=== PATIENT | male | born 1975 | race Two or more races ===

== ENCOUNTER 2021-04-12 10:58 | Emergency (ER) | payer OTHER ==
[~2021-04-12] VITALS: Ht 180.3 cm; Wt 78.6 kg
[2021-04-12 11:15] VITALS: BP 137/60
[2021-04-12] MEDS ORDERED: IBUPROFEN 400 MG TABLET. PO ONE (11:45)
[2021-04-12] MEDS ORDERED: BACITRACIN TOPICAL OINT PACKET. TP ONE (11:45)
[2021-04-12] MEDS ORDERED: DIPH,PERTUSS(ACELL),TET VAC/PF 0.5 ML SYRINGE. VAX IM ONE (11:45)
--- NOTE | 2021-04-12 11:59 | PHYS DOC ---
Past Medical History Past Surgical History: No Surgical History General Adult EDM: Chief Complaint: LACERATION/AVULSION HPI: HPI: Patient is a 46 year old male who presents with laceration to the right rose that occurred last night at 2200. Patient states that he works for [employer], and he was walking between the truck and the trailer when he fell from standing onto his right knee. He states he was scraped on the rose on his way down by part of the metal trailer, and now has some abrasions to the knee as well. He cleaned the wound with soap and water and placed a bandaid on it, then continued to work. He rates his right knee pain 8/10 at rest, but it worsens with weight bearing. He is able to ambulate with pain. He also states he feels some soreness on his right side, but it is a mild discomfort. Patient denies LOC, head trauma, or other joint pain. Patient has no other complaints at this time. Review of Systems: Review of Systems: Constitutional: Denies fever or chills. Respiratory: Denies cough or shortness of breath. Cardiovascular: Denies chest pain or edema. Musculoskeletal: See HPI Integument: See HPI Neurologic: Denies headache, focal weakness or sensory changes. Heart Score: C/O Chest Pain: No Current Medications: Current Medications Medications (Trade) Dose Ordered Sig/Rigoberto Start Time Stop Time Status Last Admin Dose Admin Bacitracin (Bacitracin Zinc Oint Pkt) 1 pkt 1X ONCE 04/12/21 11:45 04/12/21 11:46 Diphtheria/ Tetanus/Acell Pertussis (ADACEL TDap SYRINGE) 0.5 ml ONCE ONCE 04/12/21 11:45 04/12/21 11:46 Ibuprofen (Motrin) 800 mg 1X ONCE 04/12/21 11:45 04/12/21 11:46 Allergies: Allergies: Allergies Coded Allergies Type Severity Reaction Last Updated Verified No Known Drug Allergies 04/12/21 No Physical Exam: PE: Constitutional: Well developed, well nourished, no acute distress, non-toxic appearance. Eyes: PERRLA, EOMI, conjunctiva normal, no discharge. Neck: Normal range of motion, no tenderness, supple, no stridor. Cardiovascular: Heart rate regular rhythm, no murmur. Lungs & Thorax: Bilateral breath sounds clear to auscultation. Skin: Superficial abrasions noted to the right knee. Right rose just distal to the knee has a 1 cm laceration without foreign body, active bleeding or discharge. Skin otherwise warm, dry, no erythema, no rash. Back: No step-offs, no bony tenderness, no paraspinal spasm, no CVA tenderness. Extremities: Right knee tender to palpation distal to the patella and over the proximal tibia, right knee flexion and extension limited secondary to pain. Other extremities ROM intact without tenderness, cyanosis, clubbing, edema. Neurovascular intact in extremities x4. Neurologic: Alert and oriented X 3, normal motor function, normal sensory function, no focal deficits noted. Current Patient Data: Vital Signs: Vital Signs Date Time Temp Pulse Resp B/P (MAP) Pulse Ox O2 Delivery O2 Flow Rate FiO2 04/12/21 11:15 97.9 80 16 137/60 (85) 98 Room Air 97.9 Radiology/Procedures: Radiology/Procedures: PROCEDURE: KNEE RIGHT 3V XR KNEE 3 VIEWS_RT Clinical indications: Reason: fall from standing / Spl. Instructions: / History: Findings: No acute fracture or dislocation or osteolytic process is evident. The patella is normally aligned. No right knee joint effusion is seen. IMPRESSION: No acute osseous abnormality is evident. Electronically signed by: Pal Perez MD (04/12/2021 12:04 PM) [id number] Course & Med Decision Making: Course & Med Decision Making Pertinent Labs and Imaging studies reviewed. (See chart for details) Due to the fact that the patient's laceration was sustained over 12 hours ago, outside, and on metal, I will not suture the laceration. It will be cleansed and irrigated with normal saline, bacitracin will be applied and will have a gauze covering. Patient states his tetanus shot is not up-to-date, so that will be updated in the department today as well. R knee xrays will be ordered, as the patient had most of his body weight fall to his knee. No fractures are seen on right knee x-rays. Patient states his pain is somewhat improved with ibuprofen. He is instructed to either continue using ibuprofen at home, or he can switch to naproxen. He should be sure to observe the wound at home for any signs of infection. Patient is comfortable with discharge plan. Dragon Disclaimer: Dragon Disclaimer: This electronic medical record was generated, in whole or in part, using a voice recognition dictation system. Departure Departure Impression: Primary Impression: Laceration without foreign body Additional Impression: Contusion of right knee, initial encounter Disposition: HOME / SELF CARE / HOMELESS Condition: STABLE Patient Instructions: Laceration Care, Adult, [id number] Additional Instructions: Keep the wound clean and dry, especially while working. You may continue to take [id number] ibuprofen or naproxen, as discussed. You do not need antibiotic prophylaxis at this time, but please return to the ER if you notice purulent discharge, increased warmth/redness around the wound, or if you develop a fever. RANJAN WHATLEY Apr 12, 2021 11:59
--- NOTE | 2021-04-12 12:07 | RAD ---
XR KNEE 3 VIEWS_RT Clinical indications: Reason: fall from standing / Spl. Instructions: / History: Findings: No acute fracture or dislocation or osteolytic process is evident. The patella is normally aligned. No right knee joint effusion is seen. IMPRESSION: No acute osseous abnormality is evident. Electronically signed by: Pal Perez MD (04/12/2021 12:04 PM) [id number]
== END 2021-04-12 12:30 | disposition home or self-care (01) ==
LOC: ER 10:58
DX: S81.811A Laceration without foreign body, right lower leg, initial encounter (principal); W18.39XA Other fall on same level, initial encounter; Y93.01 Activity, walking, marching and hiking; Y92.89 Other specified places as the place of occurrence of the external cause; Y99.8 Other external cause status
CPT/HCPCS: 73562; 90471; 90715; 99283-25